=== PATIENT | male | born 1955 | race Caucasian/White ===

== ENCOUNTER 2019-03-10 17:10 | Emergency (ER) | payer OTHER ==
[~2019-03-10] VITALS: Ht 170.2 cm; Wt 71.7 kg
[2019-03-10] MEDS ORDERED: DESCOVY 200-251 EACH (17:27)
[2019-03-10] MEDS ORDERED: TIVICAY50 MG (17:28)
== END 2019-03-10 20:03 | disposition home or self-care (01) ==
LOC: ER 17:10
DX: G45.8 Other transient cerebral ischemic attacks and related syndromes (principal)

== ENCOUNTER 2019-11-30 20:06 | Emergency (ER) | payer OTHER ==
[~2019-11-30] VITALS: Ht 170.2 cm; Wt 68.0 kg
[~2019-11-30 20:06] MED LIST: DESCOVY 200-251 EACH; TIVICAY50 MG
[2019-12-08] MEDS ORDERED: DOXYCYCLINE HY100 M2 PO (14:03)
== END 2019-11-30 23:31 | disposition home or self-care (01) ==
LOC: ER 20:06 → EDBD 20:10 → ER 23:31
DX: S01.82XA Laceration with foreign body of other part of head, initial encounter (principal); W45.8XXA Other foreign body or object entering through skin, initial encounter; Y93.89 Activity, other specified; Y92.092 Bedroom in other non-institutional residence as the place of occurrence of the external cause; Y99.8 Other external cause status

== ENCOUNTER → 2019-12-08 | Emergency (ER) | payer OTHER ==
[~2019-12-08] VITALS: Ht 170.2 cm; Wt 68.0 kg
[~2019-12-08] MED LIST changes: +DOXYCYCLINE HY100 M2 PO
== END | disposition home or self-care (01) ==
LOC: ER 09:21 → EDBD 09:25 → ER 09:25
DX: R31.0 Gross hematuria (principal); R30.0 Dysuria; A63.8 Other specified predominantly sexually transmitted diseases; Z48.02 Encounter for removal of sutures

== ENCOUNTER 2021-07-12 01:49 | Emergency (ER) | payer BC ==
[~2021-07-12] VITALS: Ht 170.2 cm; Wt 70.3 kg
[2021-07-12] MEDS ORDERED: CLEAR EYES COOL15 ML OP (04:21)
[2021-07-12] MEDS ORDERED: GENTAK5 ML OP (04:21)
== END 2021-07-12 04:39 ==
LOC: ER 01:49
DX: H10.32 Unspecified acute conjunctivitis, left eye (principal)

== ENCOUNTER 2021-07-17 12:58 | Emergency (ER) | payer BC ==
[~2021-07-17] VITALS: Ht 170.2 cm; Wt 70.3 kg
[~2021-07-17 12:58] MED LIST changes: +CLEAR EYES COOL15 ML OP; +GENTAK5 ML OP
== END 2021-07-17 17:06 | disposition home or self-care (01) ==
LOC: ER 12:58
DX: H10.33 Unspecified acute conjunctivitis, bilateral (principal)

== ENCOUNTER 2024-09-29 11:24 | Emergency (ER) | payer BC ==
[~2024-09-29] VITALS: Ht 170.2 cm; Wt 68.0 kg
[~2024-09-29 11:24] MED LIST changes: +ATORVASTATIN CA20 MG; +CHLORTHALIDONE25 MG PO; +NASAL MIST126 ML; +[UNRECOGNIZED DRUG - CODE] IM
[2024-09-29] MEDS ORDERED: PROTONIX40 MG PO (13:19)
[2024-09-29] MEDS ORDERED: CEFUROXIME500 MG PO (13:19)
== END 2024-09-29 14:44 | disposition home or self-care (01) ==
LOC: ER 11:24
DX: L60.0 Ingrowing nail (principal); I10 Essential (primary) hypertension